=== PATIENT | male | born 2000 | race Caucasian/White ===

== ENCOUNTER 2021-09-16 07:47 | Emergency (ER) | payer OTHER ==
[~2021-09-16 07:47] MED LIST: IBUPROFEN600 MG PO
[2021-09-16 08:37] LABS: HEMOGLOBIN 14.8 gm/dl (14.0-17.5); RED BLOOD COUNT 5.07 M/UL (4.20-5.50)
[2021-09-16 08:58] LABS: BUN/CREATININE RATIO 17 (0-10)
[2021-09-16] MEDS ORDERED: NAPROXEN500 M1 PO (10:56)
== END 2021-09-16 11:47 | disposition home or self-care (01) ==
LOC: ER1 07:47
PROVIDERS: Student in an Organized Health Care Education/Training Program
DX: R07.9 Chest pain, unspecified (principal)
CPT/HCPCS: 71045; 80048; 82550; 82553; 83874; 84484; 85025; 93005; 99285